=== PATIENT | female | born 1995 | race African-American/Black ===

== ENCOUNTER 2024-04-13 09:34 | Emergency (ER) | payer SELFPAY ==
[~2024-04-13] VITALS: Ht 170.2 cm; Wt 70.0 kg
[2024-04-13 09:36] VITALS: O2SAT 97
[2024-04-13 10:42] VITALS: BP 120/80; PULSE 90; RESP 16; TEMP 36.7; O2SAT 97
== END 2024-04-13 10:43 | disposition home or self-care (01) ==
LOC: ER 09:34
DX: S06.0XAA Concussion with loss of consciousness status unknown, initial encounter (principal); W22.03XA Walked into furniture, initial encounter; Y93.89 Activity, other specified; Y92.89 Other specified places as the place of occurrence of the external cause; Y99.8 Other external cause status
CPT/HCPCS: 99283